=== PATIENT | male | born 1985 | race Hispanic/Latino ===

== ENCOUNTER 2022-12-13 19:58 | Emergency (ER) | payer OTHER ==
[~2022-12-13] VITALS: Ht 170.2 cm; Wt 85.3 kg
[2022-12-13 20:20] VITALS: O2SAT 98
[2022-12-13] MEDS ORDERED: CLEOCIN HCL300 MG PO (21:42)
[2022-12-13] MEDS ORDERED: MUPIROCIN22 GM TOP (21:42)
[2022-12-13] MEDS ORDERED: NAPROSYN500 MG PO (21:42)
[2022-12-13] MEDS ORDERED: BACTRIM DS TAB1 EACH PO (21:42)
== END 2022-12-13 22:41 | disposition home or self-care (01) ==
LOC: FSED 20:08
DX: L02.415 Cutaneous abscess of right lower limb (principal); R50.9 Fever, unspecified; W57.XXXA Bitten or stung by nonvenomous insect and other nonvenomous arthropods, initial encounter; Y92.89 Other specified places as the place of occurrence of the external cause; F17.210 Nicotine dependence, cigarettes, uncomplicated
CPT/HCPCS: 99282